=== PATIENT | female | born 1945 ===

== ENCOUNTER 2022-09-04 08:13 | Outpatient (CLI) | payer OTHER | END 2022-09-04 08:22 | disposition home or self-care (01) | LOC: MRI 08:13 | PROVIDERS: ATTEND Urology | DX: N28.1 Cyst of kidney, acquired (principal); C64.1 Malignant neoplasm of right kidney, except renal pelvis | CPT/HCPCS: 74183; Q9965 ==

== ENCOUNTER → 2022-09-04 09:23 | Outpatient (CLI) | payer OTHER | END | disposition home or self-care (01) | LOC: LAB 09:23 | PROVIDERS: ATTEND Radiology Diagnostic Radiology | DX: C64.1 Malignant neoplasm of right kidney, except renal pelvis (principal) ==